=== PATIENT | female | born 1985 | race African-American/Black ===

== ENCOUNTER 2023-08-27 07:21 | Emergency (ER) | payer OTHER ==
[2023-08-27 07:49] VITALS: BP 155/102; PULSE 94; RESP 18; TEMP 98.3; BMI 52.0
== END 2023-08-27 08:50 | disposition home or self-care (01) ==
LOC: JER 07:21
DX: J04.0 Acute laryngitis (principal); F10.939 Alcohol use, unspecified with withdrawal, unspecified; R25.1 Tremor, unspecified; R25.3 Fasciculation
CPT/HCPCS: 99282-25

== ENCOUNTER 2023-08-27 10:15 | Inpatient (IN) | payer OTHER ==
[2023-08-27 11:48] VITALS: BMI 21.9
[2023-08-27] MEDS ORDERED: NALOXONE HCL (KLOXXADO) 8 MG SPRAY NS PRN (12:42)
[2023-08-27] MEDS ORDERED: IBUPROFEN 400 MG TABLET (FP) PO PRN (12:42)
[2023-08-27] MEDS ORDERED: POLYETHYLENE GLYCOL (HEALTHYLAX) 3350 17 GM PACKET PO PRN (12:42)
[2023-08-27] MEDS ORDERED: NALOXONE HCL 0.4 MG/ML VIAL IM PRN (12:42)
[2023-08-27] MEDS ORDERED: guaiFENesin 600 MG TABLET.ER (FP) PO PRN (12:42)
[2023-08-27] MEDS ORDERED: ACETAMINOPHEN 325 MG TABLET (FP) PO PRN (12:42)
[2023-08-27] MEDS ORDERED: IBUPROFEN 600 MG TABLET (FP) PO PRN (12:42)
[2023-08-27] MEDS ORDERED: DICYCLOMINE HCL 10 MG CAPSULE PO PRN (12:42)
[2023-08-27] MEDS ORDERED: hydrOXYzine PAMOATE 25 MG CAPSULE (FP) PO PRN (12:42)
[2023-08-27] MEDS ORDERED: ONDANSETRON *ODT* 4 MG TABLET SL PRN (12:42)
[2023-08-27] MEDS ORDERED: MAG HYDROX/AL HYDROX/SIMETH 30 ML UNIT-DOSE CUP PO PRN (12:42)
[2023-08-27] MEDS ORDERED: BENZONATATE 200 MG CAPSULE PO PRN (12:42)
[2023-08-27] MEDS ORDERED: METHOCARBAMOL 500 MG TABLET PO PRN (12:42)
[2023-08-27] MEDS ORDERED: BENZOCAINE/MENTHOL (CHLORASEPTIC ) LOZENGE MM PRN (12:42)
[2023-08-27] MEDS ORDERED: diazePAM 5 MG TABLET PO PRN (12:42)
[2023-08-27] MEDS ORDERED: MAGNESIUM HYDROX 2400MG/30ML ORAL SUSPENSION 30 ML CUP PO PRN (12:42)
[2023-08-27] MEDS ORDERED: LOPERAMIDE HCL 2 MG CAPSULE PO PRN (12:42)
[2023-08-27] MEDS ORDERED: BISMUTH SUBSALICYLATE 524 MG/30 ML PO PRN (12:42)
[2023-08-27] MEDS ORDERED: diazePAM 5 MG TABLET ONE (12:54)
[2023-08-27] MEDS ORDERED: LORazepam 2 MG/ML SDV VIAL IM ONE (13:15)
[2023-08-27] MEDS ORDERED: ACETAMINOPHEN 325 MG TABLET (FP) ONE (15:04)
[2023-08-27] MEDS: diazePAM 5 MG TABLET PO SCH ×2 (17:58→22:35)
[2023-08-27] MEDS ORDERED: THIAMINE HCL 100 MG TABLET (FP) PO SCH (22:00)
[2023-08-27] MEDS ORDERED: MELATONIN 5 MG TABLETS PO SCH (22:00)
[2023-08-28] MEDS: diazePAM 5 MG TABLET PO SCH ×3 (05:46→17:55)
[2023-08-28] MEDS ORDERED: PRENATAL VITAMINS W/ FOLIC ACID TABLET (FP) PO SCH (10:00)
[2023-08-28 10:12] LABS: HEMATOCRIT 35.2 % (32.4-45.2); HEMOGLOBIN 11.9 GM/dL (10.7-15.3); MCH 31.4 pg (25.7-33.7); MCHC 33.7 g/dl (32.0-36.0); MEAN CELL VOLUME 93.4 fl (80-96); MEAN PLT VOLUME 8.3 fl (7.5-11.1); PLATELET COUNT 260 10^3/uL (134-434); RBC 3.77 M/mm3 (3.60-5.2); RDW 12.8 % (11.6-15.6); WHITE BLOOD COUNT 6.5 K/mm3 (4.0-10.0)
[2023-08-28 10:18] LABS: CHLORIDE 104 mmol/L (98-107); POTASSIUM 3.3 mmol/L (3.5-5.1); SODIUM 141 mmol/L (136-145)
[2023-08-28 10:21] LABS: CALCIUM 8.5 mg/dL (8.5-10.1)
[2023-08-28 10:22] LABS: ALBUMIN 2.9 g/dl (3.4-5.0); ANION GAP 7 mmol/L (4-13); BLOOD UREA NITROGEN 10.8 mg/dL (7-18); CO2 30 mmol/L (21-32); GLUCOSE,RANDOM 92 mg/dL (74-106)
[2023-08-28 10:25] LABS: CREATININE 0.8 mg/dL (0.55-1.3); SGOT/AST 29 U/L (15-37); SGPT/ALT 23 U/L (13-61)
[2023-08-28 10:26] LABS: BILIRUBIN,TOTAL 0.7 mg/dL (0.2-1); TOT PROT 6.2 g/dl (6.4-8.2)
[2023-08-28 10:28] LABS: ALK PHOS 53 U/L (45-117)
[2023-08-28] MEDS ORDERED: POTASSIUM CHLORIDE ORAL LIQUID 20 MEQ/15 ML PO ONE (12:12)
[2023-08-28] MEDS ORDERED: PATIENT'S OWN MEDICATION (NON-FORMULARY) (Amlodipine Bes/Olmesartan Med [Azor 10-40 Mg Tab PO SCH (12:15)
[2023-08-28] MEDS ORDERED: amLODIPine BESYLATE 10 MG TABLET (FP) PO SCH (12:15)
[2023-08-28] MEDS ORDERED: LOSARTAN POTASSIUM 50 MG TABLET PO SCH (12:15)
[2023-08-28 13:32] VITALS: RESP 16
[2023-08-28 13:59] VITALS: BP 134/92; PULSE 84; TEMP 97.5
[2023-08-28] MEDS ORDERED: POTASSIUM CHLORIDE ORAL LIQUID 20 MEQ/15 ML PO SCH (22:00)
[2023-08-29] MEDS ORDERED: diazePAM 5 MG TABLET PO SCH (06:00)
[2023-08-30] MEDS ORDERED: diazePAM 5 MG TABLET PO SCH (06:00)
[2023-08-31] MEDS ORDERED: diazePAM 5 MG TABLET PO ONE (06:00)
== END 2023-08-28 16:42 | disposition home or self-care (01) | DRG 774 ==
LOC: YASAS 10:15 → Y6N 12:39 → Y3N 13:24
PROVIDERS: ADMIT Allergy & Immunology; ATTEND Surgery
PROC: HZ2ZZZZ Detoxification Services for Substance Abuse Treatment (ICD-10-PCS; principal; 2023-08-27)
DX: F10.230 Alcohol dependence with withdrawal, uncomplicated (principal); F14.20 Cocaine dependence, uncomplicated; F17.210 Nicotine dependence, cigarettes, uncomplicated; E87.6 Hypokalemia; E78.5 Hyperlipidemia, unspecified; I10 Essential (primary) hypertension; R55 Syncope and collapse; R26.81 Unsteadiness on feet; Z28.310 Unvaccinated for COVID-19; Z28.9 Immunization not carried out for unspecified reason; Z88.0 Allergy status to penicillin
CPT/HCPCS: 36415; 80053; 80307; 81025; 85027; 86780; 87635; 93005; 93010

== ENCOUNTER 2023-08-28 14:05 | Emergency (ER) | payer OTHER ==
[2023-08-28 14:54] VITALS: BP 128/89; PULSE 84; RESP 20; TEMP 97.8; BMI 21.1
== END 2023-08-28 16:42 | disposition home or self-care (01) ==
LOC: JER 14:05
DX: R55 Syncope and collapse (principal)
CPT/HCPCS: 99283-25